=== PATIENT | male | born 1995 | race Caucasian/White ===

== ENCOUNTER 2018-04-19 08:47 | Emergency (ER) | payer OTHER ==
[2018-04-19] MEDS ORDERED: LORazepam 2 MG/ML INJ IVP ONE (08:58)
--- NOTE | 2018-04-19 09:00 | EDPHY ---
H & P Time Seen by Provider: 04/19/18 08:50 HPI/ROS: CHIEF COMPLAINT: Seizure Limitations: Altered mental status HISTORY OF PRESENT ILLNESS: 23-year-old male with a seizure disorder on Keppra presents after a generalized seizure. His roommate heard a noise in the patient 's room, went in to see the patient and found him unresponsive on the floor. EMS called. On EMS arrival, the patient was postictal and blood sugar was adequate. REVIEW OF SYSTEMS: Unable to determine Source: Patient - Social History Alcohol Use: Occasionally Drug Use: None Additional Social History: Student at [employer] - Physical Exam Exam: General Appearance: Generalized seizure, pale Eyes: Pupils equal and round ENT, Mouth: Mucous membranes moist Neck: Normal inspection Respiratory: Lungs are clear to auscultation anteriorly Cardiovascular: Regular rate and rhythm Gastrointestinal: Abdomen is soft and nontender Neurological: Generalized seizure, followed by unresponsiveness Skin: Warm and dry Extremities: Normal inspection Psychiatric: Unable to determine Constitutional: Initial Vital Signs Temperature (C) 36.7 C 04/19/18 08:47 Heart Rate 106 H 04/19/18 08:47 Respiratory Rate 14 04/19/18 08:47 Blood Pressure 108/69 04/19/18 08:47 O2 Sat (%) 98 04/19/18 08:47 O2 Delivery Mode Room Air O2 (L/minute) 2 Allergies/Adverse Reactions: egg Allergy (Verified 04/19/18 08:56) soy Allergy (Verified 04/19/18 08:56) Home Medications: Medication Instructions Recorded [facility] 04/19/18 Medical Decision Making - Diagnostics EKG Interpretation: EKG interpreted by me reveals sinus tachycardia, rate 109, THANIA, no ST or T segment changes. Interpretation: Abnormal EKG ED Course/Re-evaluation: This patient presents actively seizing on arrival. Ativan 1 mg IV given. Keppra 500 mg IV given. 0900: remains unresponsive to painful stimuli. Eyes deviated to the right, pupils 2 mm. No seizure activity. 0930: asks me "how's it going?", HR 150, EKG ordered. 1000: HR 127, IVF infusing 1030: alert, answering questions appropriately. +Etoh last evening, alcohol often causes seizures the next day. Has not missed a dose of Keppra. Has occasional seizures, unsure when his last seizure was. He will call his neurologist in [place] for follow-up. Patient able to ambulate well on discharge. Warning signs discussed. Does not drive and understands general seizure precautions. Will try to avoid alcohol. Differential Diagnosis: Differential diagnosis includes though it is not limited to status epilepticus, hypoglycemia, intracranial hemorrhage, CVA, benzodiazepine withdrawal, alcohol withdrawal, epilepsy. - Data Points Laboratory Results: Laboratory Results 04/19/18 08:50 04/19/18 08:50 04/19/18 04/19/18 08:50 08:50 WBC 10.35 10^3/uL H 10^3/uL (3.80-9.50) RBC 5.91 10^6/uL 10^6/uL (4.40-6.38) Hgb 18.1 g/dL H g/dL (13.7-17.5) Hct 55.5 % H % (40.0-51.0) MCV 93.9 fL fL (81.5-99.8) MCH 30.6 pg pg (27.9-34.1) MCHC 32.6 g/dL g/dL (32.4-36.7) RDW 12.6 % % (11.5-15.2) Plt Count 308 10^3/uL 10^3/uL (150-400) MPV 9.6 fL fL (8.7-11.7) Neut % (Auto) 35.4 % L % (39.3-74.2) Lymph % (Auto) 52.0 % H % (15.0-45.0) [place] % (Auto) 6.2 % % (4.5-13.0) Eos % (Auto) 5.5 % % (0.6-7.6) Baso % (Auto) 0.6 % % (0.3-1.7) Nucleat RBC Rel Count 0.0 % % (0.0-0.2) Absolute Neuts (auto) 3.67 10^3/uL 10^3/uL (1.70-6.50) Absolute Lymphs (auto) 5.38 10^3/uL H 10^3/uL (1.00-3.00) Absolute Monos (auto) 0.64 10^3/uL 10^3/uL (0.30-0.80) Absolute Eos (auto) 0.57 10^3/uL H 10^3/uL (0.03-0.40) Absolute Basos (auto) 0.06 10^3/uL 10^3/uL (0.02-0.10) Absolute Nucleated RBC 0.00 10^3/uL 10^3/uL (0-0.01) Immature Gran % 0.3 % % (0.0-1.1) Immature Gran # 0.03 10^3/uL 10^3/uL (0.00-0.10) Platelet Estimate ADEQUATE (ADEQ) Sodium 143 mEq/L mEq/L (135-145) Potassium 4.0 mEq/L mEq/L (3.5-5.2) Chloride 104 mEq/L mEq/L (97-110) Carbon Dioxide 14 mEq/l L mEq/l (22-31) Anion Gap 25 mEq/L H mEq/L (6-14) BUN 11 mg/dL mg/dL (7-23) Creatinine 1.1 mg/dL mg/dL (0.7-1.3) Estimated GFR > 60 Glucose 92 mg/dL mg/dL (70-100) Calcium 9.8 mg/dL mg/dL (8.5-10.4) Medications Given: Discontinued Medications Levetiracetam (Keppra (Premix)) 100 mls @ 400 mls/hr IV EDNOW ONE Stop: 04/19/18 09:20 Last Admin: 04/19/18 09:46 Dose: 100 mls Sodium Chloride (Ns) 1,000 mls @ 0 mls/hr IV ONCE ONE; Wide Open PRN Reason: Protocol Stop: 04/19/18 09:32 Last Admin: 04/19/18 09:36 Dose: 1,000 mls Lorazepam (Ativan Injection) 1 mg IVP EDNOW ONE Stop: 04/19/18 08:59 Last Admin: 04/19/18 08:59 Dose: 1 mg Departure - Departure Disposition: Home, Routine, Self-Care Clinical Impression: Seizure disorder Condition: Good Instructions: Epilepsy (ED) Additional Instructions: Avoid alcohol. Return for recurrent seizure or any concerns. Follow-up with your neurologist. Do not drive. Referrals: Kenzie Plascencia MD [[facility] Primary Care Provider] - As per Instructions
[2018-04-19] MEDS ORDERED: levETIRAcetam 500MG/NACL 100 ML IV ONE (09:06)
[2018-04-19 09:12] LABS: PLATELET COUNT 308 10^3/uL (150-400)
[2018-04-19] MEDS ORDERED: NS 1,000 ML IV ONE (09:31)
[2018-04-19 12:01] VITALS: BP 122/61
--- NOTE | 2018-04-19 14:57 | CPEKG ---
Test Reason : OPEN Blood Pressure : / mmHG Vent. Rate : 109 BPM Atrial Rate : 109 BPM P-R Int : 143 ms QRS Dur : 109 ms QT Int : 343 ms P-R-T Axes : 074 069 029 degrees QTc Int : 463 ms Sinus tachycardia Right atrial enlargement Confirmed by Mildred Hilliard ([id number]) on 04/19/2018 2:56:40 PM Referred By: Mildred Hilliard Confirmed By:Mildred Hilliard
== END 2018-04-19 12:09 | disposition home or self-care (01) ==
DX: G40.909 Epilepsy, unspecified, not intractable, without status epilepticus (principal); E86.9 Volume depletion, unspecified
CPT/HCPCS: 96374; J1953; J2060